=== PATIENT | female | born 1940 | race Caucasian/White ===

== ENCOUNTER 2019-03-09 18:47 | Emergency (ER) | payer MEDICARE ==
[~2019-03-09] VITALS: Ht 167.6 cm; Wt 70.0 kg
[2019-03-09 18:50] VITALS: BP 148/87
[2019-03-09] MEDS ORDERED: LIDOcaine 1% w/epiNEPHrine 1:200,000 30ml vial IM ONE (20:35)
[2019-03-09] MEDS ORDERED: TETanus/Pertussis (Acell)/Diphther VAC/PF (Tdap-Adult) 0.5ml syringe IM ONE (20:35)
== END 2019-03-09 21:54 | disposition home or self-care (01) ==
LOC: ER 18:48
DX: S61.211A Laceration without foreign body of left index finger without damage to nail, initial encounter (principal); W26.8XXA Contact with other sharp object(s), not elsewhere classified, initial encounter; Y93.89 Activity, other specified; Y92.098 Other place in other non-institutional residence as the place of occurrence of the external cause; Y99.8 Other external cause status
CPT/HCPCS: 12001; 90471; 90715; 99283; J3490